=== PATIENT | male | born 1970 | race Hispanic/Latino ===

== ENCOUNTER 2016-06-17 10:24 | Emergency (ER) | payer OTHER, BC ==
[2016-06-17 11:16] VITALS: BP 131/95; PULSE 80; RESP 18; TEMP 98.2; O2SAT 96; BMI 34.9
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
== END 2016-06-17 12:46 | disposition home or self-care (01) ==
LOC: ED 10:24
DX: M54.2 Cervicalgia (principal)
CPT/HCPCS: 96372; 99284; J1885